=== PATIENT | male | born 1940 | race Caucasian/White ===

== ENCOUNTER 2019-08-05 08:34 | Outpatient (CLI) | payer MEDICARE, OTHER ==
--- NOTE | 2019-08-05 11:45 | ULT ---
RIGHT UPPER QUADRANT ULTRASOUND: Date: 08/05/19 HISTORY: Epigastric pain. FINDINGS: The liver demonstrates homogeneous echotexture with prominent intrahepatic ducts. The common duct gabbie sures 4.0 mm in diameter. There is a 4.3 x 1.0 cm nonshadowing echogenic mass which is not mobile and may represent a gallbladder mass or an adherent sludge ball. The right kidney and visualized portion s of the pancreas are normal. No shadowing gallstones are seen. Gallbladder wall is at upper limits o f normal in thickness measuring 3.0 mm. No free fluid is seen in Morison's pouch. IMPRESSION: 1. Mild prominence of the intrahepatic ducts. 2. Gallbladder mass versus adherent sludge ball. Surgical consultation is recommended. POS: [facility]
== END 2019-08-05 08:35 | disposition home or self-care (01) ==
LOC: SCSULT 08:34
PROVIDERS: ATTEND Internal Medicine
DX: R10.13 Epigastric pain (principal)
CPT/HCPCS: 76705

== ENCOUNTER 2019-08-27 08:14 | Outpatient (CLI) | payer MEDICARE, OTHER ==
[2019-08-27 11:47] LABS: #Eosinphils 0.2 thou/uL (0.0-0.7); #Lymphocytes 1.3 thou/uL (1.20-3.40); #Monocytes 0.6 thou/uL (0.11-0.59); #Neutrophils 6.1 thou/uL (1.40-6.50); %Basophils 0.2 % (0.0-1.0); %Eosinophils 1.8 % (0.0-10.0); %Lymphocytes 15.9 % (21.0-51.0); %Monocytes 7.5 % (0.0-10.0); %Neutrophils 74.5 % (42.0-75.0); Hemoglobin 15.4 g/dL (14.0-18.0); Mean Corpuscular HGB CONC 33.1 g/dL (32.0-36.0); Mean Corpuscular Hemoglobin 31.4 pg (27.0-31.0); Mean Platelet Volume 8.9 fL (7.4-10.4); Platelet Count 195 thou/uL (130-400); RBC Distribution Width 13.1 % (11.5-14.5); White Blood Cell (WBC) Count 8.2 thou/uL (4.8-10.8)
--- NOTE | 2019-08-27 12:02 | CT ---
CT Abdomen W Con History: Gallbladder mass Comparison: Ultrasound August 05, 2019 Findings: Lung bases are clear. Few calcified granulomas. No pericardial effusion. Mild hyperenhancement and thickening of the gallbladder fundus, although less than 3 mm. No solid int raluminal mass is appreciated. No intrahepatic or extra hepatic biliary dilatation. The extrahepatic common bile duct measures up to 6 mm, normal for age. Moderate diverticular disease sigmoid colon without active current inflammation. Circumferential wall thickening of the sigmoid colon. Adrenal glands are unremarkable. The aortic contour is nonaneurysmal. High-grade degenerative facet a rthropathy of the lower lumbar spine. No hydronephrosis. Impression: 1. Mild, less than 3 mm, wall thickening of the gallbladder fundus can be seen with adenomyomatosis. No intraluminal mass is appreciated. 2. Circumferential wall thickening of the sigmoid colon is incompletely evaluated axial image 58. Thi s may be sequela of a recent bout of diverticulitis versus less likely annular mass. Nonemergent colonoscopy evaluation recommended. 3. No intrahepatic or extrahepatic biliary dilatation. 4. No other acute intrathoracic process in the abdomen.
[2019-08-27 14:58] LABS: ALT (SGPT) 13 U/L (8-55); AST (SGOT) 19 U/L (5-34); Albumin 4.4 g/dL (3.4-4.8); Alkaline Phosphatase 92 U/L (40-110); Anion Gap 12 mmol/L (10-20); BUN (Urea Nitrogen) 10 mg/dL (8.4-25.7); Calc. Creatinine Clearance 0 mL/min (70-130); Calcium 9.7 mg/dL (7.8-10.44); Carbon Dioxide 29 mmol/L (23-31); Chloride 100 mmol/L (98-107); Estimated GFR-MDRD 87; Globulin 3.3 g/dL (2.4-3.5); Glucose 94 mg/dL (83-110); Potassium 3.6 mmol/L (3.5-5.1); Protein, Total 7.7 g/dL (5.8-8.1); Sodium 137 mmol/L (136-145)
== END 2019-08-27 08:15 | disposition home or self-care (01) ==
LOC: SCSCT 08:14
PROVIDERS: ATTEND Surgery
DX: K82.8 Other specified diseases of gallbladder (principal); K63.89 Other specified diseases of intestine
CPT/HCPCS: 74160; 80053; 85025